=== PATIENT | male | born 1935 | race Caucasian/White ===

== ENCOUNTER 2025-02-02 07:39 | Emergency (ER) | payer MEDICARE ==
[~2025-02-02] VITALS: Ht 172.7 cm; Wt 66.7 kg
[2025-02-02 07:55] VITALS: TEMP 97.8
[2025-02-02 10:00] VITALS: PULSE 72; RESP 18; O2SAT 100
[2025-02-02] MEDS: HYDROCODONE/APAP 5MG-325MG TAB PO ONE (10:00)
[2025-02-02] MEDS ORDERED: HYDROCODON-ACE1 EA11 PO (10:06)
== END 2025-02-02 10:26 | disposition home or self-care (01) ==
LOC: ER 08:17
DX: S22.41XA Multiple fractures of ribs, right side, initial encounter for closed fracture (principal); W01.198A Fall on same level from slipping, tripping and stumbling with subsequent striking against other object, initial encounter; Y92.89 Other specified places as the place of occurrence of the external cause; Z99.81 Dependence on supplemental oxygen; E78.5 Hyperlipidemia, unspecified; M19.09 Primary osteoarthritis, other specified site
CPT/HCPCS: 70450; 71250; 72125; 94799; 99284